=== PATIENT | female | born 1950 | race Caucasian/White ===

== ENCOUNTER 2021-05-15 19:28 | Emergency (ER) | payer MEDICARE, OTHER ==
[2021-05-15] MEDS ORDERED: Diphtheria,Pertussis(Acell),Tetanus Vaccine 0.5 ML Syringe IM ONE (20:16)
--- NOTE | 2021-05-15 20:20 | EDM.PDOC ---
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 - Related Data Allergies Allergy/AdvReac Type Severity Reaction Status Date / Time ciprofloxacin [From Cipro] Allergy Lightheaded Verified 05/15/21 20:24 ness ciprofloxacin HCl Allergy Lightheaded Verified 05/15/21 20:24 [From Cipro] ness Home Meds: Home Meds B-Complex with Vitamin C [Super B Complex-Vitamin C] 1 each PO DAILY 01/24/16 [History] Calcium Carb/Vitamin D3/Vit K1 [Calcium + Vit D & K Chew] 1 each PO DAILY 01/24/16 [History] Cholecalciferol (Vitamin D3) [Vitamin D3] 1,000 unit PO DAILY 01/24/16 [History] Denosumab [Xgeva] 60 mg SUBCUT ASDIRECTED 01/24/16 [History] Lutein 20 mg PO DAILY 01/24/16 [History] Multivit-Min/Iron/Folic/Lutein [Centrum Silver Women Tablet] 1 each PO DAILY 01/24/16 [History] lisinopriL [Prinivil] 10 mg PO DAILY 01/24/16 [History] Past Medical History Cardiovascular History: Reports: High Cholesterol, Hypertension Respiratory History: Reports: COPD Gastrointestinal History: Reports: Other (See Below) Other Gastrointestinal History: 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: Musculoskeletal History: Reports: Osteoporosis Endocrine/Metabolic History: Reports: Osteoporosis - Past Surgical History HEENT Surgical History: Reports: Tonsillectomy Social & Family History - Tobacco Use Tobacco Use Status *Q: Former Tobacco User Used Tobacco, but Quit: Yes Month/Year Tobacco Last Used: 9 years ago - Caffeine Use Caffeine Use: Reports: Coffee, Tea - Recreational Drug Use Recreational Drug Use: No ED ROS GENERAL - Review of Systems Review Of Systems: See Below Constitutional: Reports: No Symptoms HEENT: Reports: No Symptoms Respiratory: Reports: No Symptoms Cardiovascular: Reports: No Symptoms Endocrine: Reports: No Symptoms GI/Abdominal: Reports: No Symptoms : Reports: No Symptoms Musculoskeletal: Reports: No Symptoms Skin: Reports: Wound Neurological: Reports: No Symptoms Psychiatric: Reports: No Symptoms Hematologic/Lymphatic: Reports: No Symptoms Immunologic: Reports: No Symptoms ED EXAM, ANIMAL BITE - Physical Exam Exam: See Below Exam Limited By: No Limitations General Appearance: Alert, WD/WN, No Apparent Distress Nose: Other (2 x 3 mm abrasion of nose) Respiratory/Chest: No Respiratory Distress Neurological: Alert, Oriented, CN II-XII Intact, Normal Cognition, No Motor/S ensory Deficits Psychiatric: Normal Affect, Normal Mood Skin Exam: Other (R forearm with 10-12 superficial wounds, 4 were closed with SS, a 6 mm long and 3 mm wide on volar aspect of wrist in midline closed with one SS) Comments: a skin tear of 3 cm was pulled together with tincture benzoin and several SS, 2 additional 5 mm long wounds dorsally closed with one SS and t benzoin all areas cleaned by RN and myself with gauze and NS Course - Vital Signs Last Recorded V/S: Last Vital Signs Temp 36.7 C 05/15/21 19:30 Pulse 50 L 05/15/21 19:30 Resp 18 05/15/21 19:30 BP 178/84 H 05/15/21 19:30 Pulse Ox 97 05/15/21 19:30 - Re-Assessments/Exams Free Text/Narrative Re-Assessment/Exam: 05/15/21 20:24 BP running higher in ED, pt to recheck it at home and call (or go) to office to f/u Departure - Departure Time of Disposition: 20:25 Disposition: Home, Self-Care 01 Condition: Good Clinical Impression: Dog bite of right forearm without complication - Discharge Information *PRESCRIPTION DRUG MONITORING PROGRAM REVIEWED*: Not Applicable *COPY OF PRESCRIPTION DRUG MONITORING REPORT IN PATIENT RA: Not Applicable Instructions: Animal Bite, Adult, Wound Care, Adult Referrals: Jerrod Pack MD [Primary Care Provider] - Additional Instructions: Keep clean and dry and covered with a dressing or bandaid for 5 days. Allow the Steri-Strips to fall off when they come loose (usually 3-5 days). Remove the outer 2 wraps in 24 hours to inspect the wounds. Cover the wounds with bandaids or may rewrap if desired. While infection is unlikely, see a physician the same day for any increase in redness, swelling, pain, warmth, fever or drainage. Sepsis Event Note (ED) - Evaluation Sepsis Screening Result: No Definite Risk - Focused Exam Vital Signs: Vital Signs Temp Pulse Resp BP Pulse Ox 05/15/21 19:30 36.7 C 50 L 18 178/84 H 97
[2021-05-15 20:52] VITALS: BP 176/74; PULSE 59
== END 2021-05-15 20:50 | disposition home or self-care (01) ==
LOC: FB.ED 19:28
DX: S50.871A Other superficial bite of right forearm, initial encounter (principal); S60.871A Other superficial bite of right wrist, initial encounter; Z23 Encounter for immunization; E78.00 Pure hypercholesterolemia, unspecified; I10 Essential (primary) hypertension; J44.9 Chronic obstructive pulmonary disease, unspecified; Z87.891 Personal history of nicotine dependence; Z88.1 Allergy status to other antibiotic agents; Z79.899 Other long term (current) drug therapy; W54.0XXA Bitten by dog, initial encounter
CPT/HCPCS: 90471; 90715; 99283

== ENCOUNTER 2024-07-13 06:42 | Day surgery (SDC) | payer MEDICARE, OTHER ==
[2024-07-13] MEDS ORDERED: Sodium Chloride 0.9% 10 ML Syringe IV ONE (06:43)
[2024-07-13] MEDS ORDERED: Midazolam 1 MG/ML 2 ML SDV IV ONE (06:43)
[2024-07-13] MEDS ORDERED: fentaNYL 100 MCG/2 ML SDV IV ONE (06:43)
[2024-07-13] MEDS ORDERED: Lactated Ringers 1,000 ML IV PRN (06:45)
[2024-07-13] MEDS: Sodium Chloride 0.9% 10 ML Syringe FLUSH PRN (07:47)
[2024-07-13] MEDS: acetaZOLAMIDE 500 MG Cap.ER PO ONE (08:46)
[2024-07-13 09:03] VITALS: BP 150/57; PULSE 46
== END 2024-07-13 09:35 | disposition home or self-care (01) ==
LOC: FB.SDS 06:42
PROVIDERS: ATTEND Ophthalmology
DX: H25.9 Unspecified age-related cataract (principal); I10 Essential (primary) hypertension; I49.3 Ventricular premature depolarization; M19.90 Unspecified osteoarthritis, unspecified site; J44.89 Other specified chronic obstructive pulmonary disease; R06.83 Snoring; G47.10 Hypersomnia, unspecified; E66.9 Obesity, unspecified; K21.9 Gastro-esophageal reflux disease without esophagitis; Z79.899 Other long term (current) drug therapy; Z88.8 Allergy status to other drugs, medicaments and biological substances; Z87.891 Personal history of nicotine dependence; Z68.25 Body mass index [BMI] 25.0-25.9, adult
CPT/HCPCS: 66984; A9270; J2250; J3010; J3490; V2632; 00142; 99100